=== PATIENT | male | born 1985 | race Caucasian/White ===

== ENCOUNTER → 2019-07-27 | Outpatient (CLI) | payer OTHER, SELFPAY ==
--- NOTE | 2019-07-27 08:56 | MRI_ITS ---
HISTORY: LEFT RADICULOPATHY lifting injury , pain low back and left leg x 6 months COMPARISON: None TECHNIQUE: Multiplanar, multisequence MRI of the lumbar spine without IV contrast. FINDINGS: Increased T1 signal intensity in the filum terminale suggesting a small lipoma. Marrow signal intensity appears unremarkable. Facet hypertrophy noted throughout the lumbar spine. L1-L2: Unremarkable L2-L3: Unremarkable L3-L4: Unremarkable L4-L5: Unremarkable L5-S1: Large left paracentral disc protrusion is present at L5-S1 resulting in lateral recess stenosis and compression of the S1 nerve root. MRI/Spine Lumbar (Routine) IMPRESSION: Large left paracentral disc protrusion is present at L5-S1 resulting in lateral recess stenosis and compression of the S1 nerve root. at [id number] Reported and signed by: Ellen Romero MD Electronically Signed: Ellen Romero MD at 5:34 EDT Tel , Service support ,
== END | disposition home or self-care (01) ==
LOC: MRI 08:47
PROVIDERS: Family Provider Family Medicine; PCP Family Medicine; Referring Provider Family Medicine; Visit Provider Family Medicine
DX: M54.16 Radiculopathy, lumbar region (principal)
CPT/HCPCS: 72148

== ENCOUNTER 2019-08-14 09:30 | Outpatient (RCR) | payer OTHER, SELFPAY ==
--- NOTE | 2019-07-17 10:41 | HP.PTEVAL_ITS ---
Patient's Visit Information RICK FRANCES is a 34 year old M referred to Physical Therapy by Layne Heredia MD with a diagnosis of LUMBAR RADICULOPATHY. Date of Evaluation: 07/17/19 Physical Therapist: Nishant Caputo, PT, Cert MDT, OCS - Visit Plan Frequency: 2x /Week Duration: 4 Weeks Plan: PT INTERVENTIONS ROLAND EX 'S ,MANUAL THERAPY ,PROGRESS TO DLS WHEN SYMPTOMS IMPROVE,POSTURAL EX'S,MODLALTIES - Subjective Findings: This 34 y/o male presents to physical therapy with lumbar radiculopathy . Patient intially patient developed lumbar pain 4 months ago ,then radiculopathy left leg. Location of symptoms left buttuck ,hamstring ,calf about 2weeks.Pateint seen chiroprcator as well. Patient was twisted around tire and holding 50# braker caused radicular symptoms . Aggravating factors bending,lifting,sitting,Alleviating walking. Coughing/sneezing +.Bowel/bladder-. Denies parathesai/tingling. Patient has h/o lumbar buldging disc 14 years ago. Patient lumbar radiculopathy affects job demands and housework . Pateint seen DR recommended PT and MRI if doesnt get better.Also provided meloxicam,naproxyn.Patient symptoms affects QOL. SOCIAL: . VOCATION: [employer] - Pain Left Back Pain Intensity (Out of 10): 5 Left Lower Extremity Pain Intensity (Out of 10): 10 Pain Intensity Range: 10 - Objective POSTURE: mild right lateral shift. PALAPTION: unremarkable. NEURO: + ANR-L ,REFLEXES L3-4,L4-5,L5-S1 3/3. LUMBAR ROM: flextion severe loss,extension min loss,side glide min loss,. FLEXABLITY: hams mod loss left + SLR. MMT: quads 4- /5,hams 4/5 ,hip flexion 4-/5,ankle 4/5planterflexion 4-/5 - Special Tests L/S Slump test left side: Positive L/S Slump test right side: Negative L/S Left Straight Leg Raise: Positive L/S Right Straight Leg Raise: Negative Lumbar Standing: Flexion - Mechanical Response: No effect Lumbar Standing: Flexion - Symptoms During Testing: Peripheralizing Lumbar Standing: Flexion - Symptoms After Testing: Worse Lumbar Standing: Extension - Mechanical Response: Increases motion Lumbar Standing: Extension - Symptoms During Testing: Decreases Lumbar Standing: Extension - Symptoms After Testing: Better Lumbar Standing: Right Side Glides - Mechanical Response: No effect Lumbar Standing: Right Side [place] - Symptoms During Testing: Increases Lumbar Standing: Right Side [place] - Symptoms After Testing: Worse Lumbar Standing: Left Side [place] - Mechanical Response: No effect Lumbar Standing: Left Side [place] - Symptoms During Testing: Increases Lumbar Standing: Left Side [place] - Symptoms After Testing: No worse Lumbar Lying: Flexion - Mechanical Response: No effect Lumbar Lying: Flexion - Symptoms During Testing: Peripheralizing Lumbar Lying: Flexion - Symptoms After Testing: Peripheralized Lumbar Lying: Extension - Mechanical Response: No effect Lumbar Lying: Extension - Symptoms During Testing: Increases Lumbar Lying: Extension - Symptoms After Testing: Better Comments:: REIL WITH HIPS TO RIGHT - Goals Goal 1:: Patient to be Independant with HEP Goal Time Frame: 4-6 Weeks Goal 2:: Patient to improve posture/body mechanics for function. Goal Time Frame: 4-6 Weeks Goal 3:: Patient decrease pain lumbar radiculopathy by 70% or greater to improve function. Goal Time Frame: 4-6 Weeks Goal 4:: Patient to improve lumbar ROM for function of recovery Goal Time Frame: 4-6 Weeks Goal 5:: Pateint improve back owestry score by 5-10 points to improev QOL Goal Time Frame: 4-6 Weeks Goal 6:: D/C to prophrolaxis Goal Time Frame: 4-6 Weeks - Rehabilitation Potential Physical Therapy Diagnosis: This patient appears to have posterior lateral with shift deformity with derrangemnt below knee worse with flexion ,better with extension and correction of posture with pain swvere loss of flexion ,weakness impairs ADL and job demands. Rehabilitation Potential: Good - Anticipated Interventions Patient/Client Instruction: Educate patient on: Condition, Plan of Care For the Purpose of:: To decrease pain, To increase ROM, To improve ability to perform ADL's, To increase tolerance to activity/condition/position, To improve ability of physical actions for home/community/work/leisure, To improve health of tissue, To decrease soft tissue restriction, To increase flexibility/ROM, To improve ability to perform tasks related to life management Manual Therapy Techniques to Include: Mobilization Comment: LUMBAR For the Purpose of:: To decrease pain, To improve muscle performance and motor function, To improve ability to perform ADL's, To increase tolerance to activity/condition/position, To improve ability of physical actions for home/community/work/leisure, To improve health of tissue, To decrease soft tissue restriction, To increase flexibility/ROM, To improve ability to perform tasks related to life management TENS: Yes IF ES: Yes Cryotherapy (ice pack, ice massage): Yes Thermo therapy (hot pack): Yes Ultrasound (thermal/non thermal): Yes For the Purpose of:: To decrease pain, To improve nutrient delivery to tissue, To increase oxygenation perfusion, To improve health of tissue, To decrease soft tissue restriction Thank you for the opportunity to evaluate your patient. For Medicare and Medicare HMO plans, please review the plan of care and approve it. It will need to be FAXED BACK to us at [phone] for Medicare purposes. For Medicare only, by signing this I certify the plan of care. Please let me know if there are questions or concerns regarding this plan of care. Physician Signature: Date:
--- NOTE | 2019-10-01 11:30 | HP.PTDCNRP_ITS ---
HP - Discharge Summary (1) - Patient Information RICK FRANCES was seen in my office for initial evaluation on 07/17/19. The following Plan of Care was established for this patient: Initial Frequency: 2x /Week Initial Duration: 4 Weeks - Anticipated Interventions Patient/Client Instruction: Educate patient on: Condition, Plan of Care For the Purpose of:: To decrease pain, To increase ROM, To improve ability to perform ADL's, To increase tolerance to activity/condition/position, To improve ability of physical actions for home/community/work/leisure, To improve health of tissue, To decrease soft tissue restriction, To increase flexibility/ROM, To improve ability to perform tasks related to life management Manual Therapy Techniques to Include: Mobilization Comment: LUMBAR For the Purpose of:: To decrease pain, To improve muscle performance and motor function, To improve ability to perform ADL's, To increase tolerance to activit y/condition/position, To improve ability of physical actions for home/community/work/leisure, To improve health of tissue, To decrease soft tissue restriction, To increase flexibility/ROM, To improve ability to perform tasks related to life management TENS: Yes IF ES: Yes Cryotherapy (ice pack, ice massage): Yes Thermo therapy (hot pack): Yes Ultrasound (thermal/non thermal): Yes For the Purpose of:: To decrease pain, To improve nutrient delivery to tissue, To increase oxygenation perfusion, To improve health of tissue, To decrease soft tissue restriction This patient was last seen in our office 08/14/19. Pertinent comments regarding their Physical therapy will appear below: Patient was seen for PT lumbar pain with HNP lumbar spine. Patient had MRI . Patient wanted to do just PT . Patient responded well with sugey vasquez's,manual therapy an progression of DLS. Patient about 50% better unable to return to function of recovery. Will continue with HEP. At this point I will be discontinuing this patient from physical therapy. I would be happy to see this patient again in the future if found appropriate by the physician. Thank you! Nishant Caputo, PT, Cert MDT, OCS
== END 2019-08-14 19:00 | disposition home or self-care (01) ==
LOC: PT 09:30
PROVIDERS: Family Provider Family Medicine; PCP Family Medicine; Referring Provider Family Medicine; Visit Provider Family Medicine
DX: M54.16 Radiculopathy, lumbar region (principal)
CPT/HCPCS: 97014; 97035; 97110; 97161; G0283